=== PATIENT | male | born 1960 | race Caucasian/White ===

== ENCOUNTER 2016-12-06 07:17 | Day surgery (SDC) | payer MEDICARE ==
--- NOTE | ~2016-12-06 | EGD ---
EGD REPORT [facility] [address] [address] NAME: CIRILO CESAR : [birth year] STATUS : REG [facility] PAT#: [id number] AGE: 56 ADM/REG DATE : 12/06/16 MR#: [id number] REPORT SERV DATE: 12/06/16 DICTATED BY: EMELIA LEO DATE: 12/06/16 REPORT STATUS : Draft TRANSCRIBED BY: [employer] DATE: 12/06/16 [facility] Patient Name: Cirilo Cesar Date of : 1960 Attending MD: EMELIA LEO MD Procedure Date No Time: 12/06/2016 Procedure: Colonoscopy Indications: Screening for colorectal malignant neoplasm Referring MD: Zeynep BLANTON MD Medicines: Monitored Anesthesia Care Complications: No immediate complications. Procedure: Pre-Anesthesia Assessment: - ASA Grade Assessment: III - A patient with severe systemic disease. After I obtained informed consent, the scope was passed under direct vision. Throughout the procedure, the patient's blood pressure, pulse, and oxygen saturations were monitored continuously. The CF [id number] was introduced through the anus and advanced to the sigmoid colon. The colonoscopy was performed without difficulty. The patient tolerated the procedure well. The quality of the bowel preparation was poor. Findings: The digital rectal exam was normal. Pertinent negatives include no palpable rectal lesions. A moderate amount of semi-liquid stool was found in the rectum and in the sigmoid colon, precluding visualization. Lavage of the area was performed, resulting in incomplete clearance with continued poor visualization. Impression: - Preparation of the colon was poor. - Stool in the rectum and in the sigmoid colon. Recommendation: - Patient has a contact number available for emergencies. The signs and symptoms of potential delayed complications were discussed with the patient. Return to normal activities tomorrow. Written discharge instructions were provided to the patient. - Regular diet. - Continue present medications. - Repeat colonoscopy at the next available appointment for screening purposes. - Use constipation prep for next exam. EGD REPORT [facility] [address] [place]. [address] NAME: CIRILO CESAR : [birth year] STATUS : REG [facility]#: [id number] AGE: 56 ADM/REG DATE : 12/06/16 MR#: [id number] REPORT SERV DATE: 12/06/16 DICTATED BY: EMELIA LEO DATE: 12/06/16 REPORT STATUS : Draft TRANSCRIBED BY: [employer] DATE: 12/06/16 Procedure Code(s): --- Professional --- 96934, 52, Colonoscopy, flexible, proximal to splenic flexure; diagnostic, with or without collection of specimen(s) by brushing or washing, with or without colon decompression (separate procedure) Diagnosis Code(s): --- Professional --- Z12.11, Encounter for screening for malignant neoplasm of colon CPT copyright 2013 [employer]. All rights reserved. The codes documented in this report are preliminary and upon geology technician review may be revised to meet current compliance requirements. EMELIA LEO MD 12/06/2016 8:37 AM This report has been signed electronically. Number of Addenda: 0 Note Initiated On: 12/06/2016 8:24 AM Scope Withdrawal Time 0 hours 0 minutes 0 seconds [address] [place] [address]
[~2016-12-06 07:17] MED LIST: ASAB PO; COMBIVENT RESPIM4 GM INH; ENDOCET1 TA3 PO; FLEX PO; LIDODERM T; LOP25 PO; LORTAB10 PO; LYRICA150 MG PO; MOBIC15 MG PO; NEUR300 PO; NEUR600 PO; NEUR800 PO; NEXIUM40 PO; NITROSPRAY SL; NITROSTAT0.4 MG SL; NORV5 PO; OXYCON20 PO; PRIN10 PO; REQUIP1 PO; ROXICODONE15 MG PO; ROXICODONE30 MG PO; SOMATAB PO; ULTRAM50 PO; UNKNOWN INHALER; XANAX1 MG PO; ZANAFLEX 4 MG TA4 MG PO; ZOCOR10 PO
== END 2016-12-06 23:59 | disposition home or self-care (01) ==
LOC: DMU 07:17
PROVIDERS: Internal Medicine Gastroenterology
PROC: 0DJD8ZZ Inspection of Lower Intestinal Tract, Via Natural or Artificial Opening Endoscopic (ICD-10-PCS; principal; 2016-12-06 08:30)
DX: Z12.11 Encounter for screening for malignant neoplasm of colon (principal); I10 Essential (primary) hypertension; I25.10 Atherosclerotic heart disease of native coronary artery without angina pectoris; G47.33 Obstructive sleep apnea (adult) (pediatric); J44.9 Chronic obstructive pulmonary disease, unspecified; K86.1 Other chronic pancreatitis; E78.00 Pure hypercholesterolemia, unspecified; I25.2 Old myocardial infarction; M19.90 Unspecified osteoarthritis, unspecified site; F41.9 Anxiety disorder, unspecified; Z88.2 Allergy status to sulfonamides; Z79.899 Other long term (current) drug therapy; Z79.891 Long term (current) use of opiate analgesic; Z99.89 Dependence on other enabling machines and devices; Z98.890 Other specified postprocedural states